=== PATIENT | female | born 1990 | race Caucasian/White ===

== ENCOUNTER 2018-08-09 02:15 | Inpatient (IN) | payer OTHER ==
[~2018-08-09] VITALS: Ht 162.6 cm; Wt 68.0 kg
[2018-08-09] MEDS ORDERED: LR 1,000 ML IV SCH (03:25)
[2018-08-09] MEDS ORDERED: NALBUPHINE HCL 10 MG/ML AMP IVP PRN (03:30)
[2018-08-09] MEDS ORDERED: NALBUPHINE HCL 10 MG/ML AMP IM PRN (03:30)
[2018-08-09 04:24] LABS: BASOPHILS % (AUTO) 0.4 % (0.0-2.0); EOSINOPHILS % (AUTO) 0.5 % (0.0-4.0); HEMATOCRIT 31.4 % (36-48); HEMOGLOBIN 9.6 g/dL (12.0-16.0); LYMPHOCYTES # (AUTO) 2.1 K/uL (1.0-5.5); LYMPHOCYTES % (AUTO) 23.8 % (20.5-51.5); MEAN CORPUSCULAR HEMOGLOBIN 23 pg (27-31); MEAN CORPUSCULAR HGB CONC 31 % (32-36); MEAN CORPUSCULAR VOLUME 76 fL (79.0-98.0); MONOCYTES # (AUTO) 0.6 K/uL (0.0-1.0); MONOCYTES % (AUTO) 6.4 % (1.7-9.3); NEUTROPHILS # (AUTO) 6.2 K/uL (1.8-7.7); NEUTROPHILS % (AUTO) 68.9 % (40.0-70.0); PLATELET COUNT (AUTO) 157 K/uL (130-430); RED BLOOD CELL COUNT(AUTO) 4.11 MIL/uL (4.2-6.2); RED CELL DISTRIBUTION WIDTH 12.8 % (9.0-15.0); WHITE BLOOD COUNT (AUTO) 8.9 K/uL (4.8-10.8)
[2018-08-09 04:46] VITALS: BP_SYST 97
[2018-08-09] MEDS ORDERED: OXYTOCIN/0.9 % SODIUM CHLORIDE 1,000 ML IV SCH ×2 (12:15→13:07)
[2018-08-09] MEDS ORDERED: OXYTOCIN/0.9 % SODIUM CHLORIDE 1,000 ML IV ONE (13:07)
[2018-08-09] MEDS ORDERED: WITCH HAZEL LEAF 1 MED.PAD MED.PAD TP PRN (13:15)
[2018-08-09] MEDS ORDERED: DOCUSATE SODIUM 100 MG CAPSULE PO PRN (13:15)
[2018-08-09] MEDS ORDERED: HYDROcodone/ACETAMIN 5-325 MG TAB (NORCO/ VICODIN) PO PRN ×2 (13:15)
[2018-08-09] MEDS ORDERED: TEMAZEPAM 15 MG CAPSULE PO PRN (13:15)
[2018-08-09] MEDS ORDERED: METHYLERGONOVINE MALEATE 0.2 MG TABLET PO PRN (13:15)
[2018-08-09] MEDS ORDERED: DERMOPLAST SPRAY TP PRN (13:15)
[2018-08-09] MEDS ORDERED: SENNOSIDES/DOCUSATE SODIUM 1 TAB TABLET(SENOKOT-S) PO PRN (13:15)
[2018-08-09] MEDS ORDERED: HYDROCORTISONE 0.5%, 28.35 GM TOPICAL CREAM TP PRN (13:15)
[2018-08-09] MEDS ORDERED: RHO(D) IMMUNE GLOBULIN/MALTOSE 1500 UNITS/1.3 ML (WINHRO) IM PRN (13:15)
[2018-08-09] MEDS ORDERED: ANUSOL 1 EA SUPP.RECT (PREPARATION H) RC PRN (13:15)
[2018-08-09] MEDS ORDERED: MEASLES,MUMPS&RUBELLA VACC/PF 12500 UNIT/0.5 ML VIAL SUBQ PRN (13:15)
[2018-08-09] MEDS ORDERED: LANOLIN 7 GM OINT. TP PRN (13:15)
[2018-08-09] MEDS ORDERED: ACETAMINOPHEN 325 MG TABLET PO PRN (13:15)
[2018-08-09] MEDS: IBUPROFEN 600 MG TABLET PO SCH ×2 (17:48→23:59)
[2018-08-10] MEDS: IBUPROFEN 600 MG TABLET PO SCH (06:00)
[2018-08-10 07:21] LABS: HEMATOCRIT 27.6 % (36-48)
[2018-08-10] MEDS ORDERED: DIPH-TET-PERTUS Vaccine 0.5 ML VIAL (ADACEL) I.M. ONE (12:45)
[2018-08-10] MEDS ORDERED: MINERAL OIL 30 ML UDC PO ONE (13:44)
== END 2018-08-10 13:45 | disposition home or self-care (01) | DRG 807 ==
LOC: SPU 02:15 → OBSVTOIN 02:35
PROVIDERS: ADMIT Obstetrics & Gynecology; ATTEND Obstetrics & Gynecology
PROC: 10E0XZZ Delivery of Products of Conception, External Approach (ICD-10-PCS; principal; 2018-08-09)
PROC: 0HQ9XZZ Repair Perineum Skin, External Approach (ICD-10-PCS; 2018-08-09)
PROC: 3E0234Z Introduction of Serum, Toxoid and Vaccine into Muscle, Percutaneous Approach (ICD-10-PCS; 2018-08-10)
DX: O69.81X0 Labor and delivery complicated by cord around neck, without compression, not applicable or unspecified (principal); Z37.0 Single live birth; Z23 Encounter for immunization; Z3A.40 40 weeks gestation of pregnancy; O70.0 First degree perineal laceration during delivery
CPT/HCPCS: 36415; 81002-TC; 85018-TC; 85025; 86592; 86870; 86886; 86900; 86901; 90715; G0378; J2590

== ENCOUNTER 2018-08-29 10:34 | Emergency (ER) | payer OTHER ==
[~2018-08-29] VITALS: Ht 162.6 cm; Wt 56.7 kg
[2018-08-29 10:41] VITALS: BP_SYST 115
[2018-08-29] MEDS ORDERED: NACL 0.9% 1,000 ML IV ONE (10:53)
[2018-08-29] MEDS ORDERED: KETOROLAC TROMETHAMINE 30 MG VIAL IVP ONE (11:00)
[2018-08-29] MEDS ORDERED: ONDANSETRON HCL 4 MG/2 ML VIAL IVP ONE (11:00)
[2018-08-29] MEDS ORDERED: cefTRIAXone 1 GM IVPB PREMIX 50 ML IV ONE (11:00)
[2018-08-29 11:23] LABS: BASOPHILS # (AUTO) 0.1 K/uL (0.0-0.2); BASOPHILS % (AUTO) 0.8 % (0.0-2.0); EOSINOPHILS % (AUTO) 0.1 % (0.0-4.0); HEMOGLOBIN 12.2 g/dL (12.0-16.0); LYMPHOCYTES # (AUTO) 0.6 K/uL (1.0-5.5); LYMPHOCYTES % (AUTO) 4.7 % (20.5-51.5); MEAN CORPUSCULAR HEMOGLOBIN 23 pg (27-31); MEAN CORPUSCULAR HGB CONC 30 % (32-36); MEAN CORPUSCULAR VOLUME 77 fL (79.0-98.0); MONOCYTES # (AUTO) 0.6 K/uL (0.0-1.0); NEUTROPHILS % (AUTO) 89.4 % (40.0-70.0); PLATELET COUNT (AUTO) 228 K/uL (130-430); RED BLOOD CELL COUNT(AUTO) 5.19 MIL/uL (4.2-6.2); RED CELL DISTRIBUTION WIDTH 14.3 % (9.0-15.0); WHITE BLOOD COUNT (AUTO) 12.3 K/uL (4.8-10.8)
[2018-08-29 11:42] LABS: PROTHROMBIN TIME 9.6 SECS (9.5-12.5)
[2018-08-29 11:45] LABS: CALCIUM 9.4 mg/dL (8.4-11.0); CREATININE 0.83 mg/dL (0.55-1.30); POTASSIUM 3.9 mmol/L (3.5-5.1)
[2018-08-29 11:50] LABS: ALBUMIN 3.8 g/dL (3.4-4.8); TOTAL BILIRUBIN 0.5 mg/dL (0.0-1.0)
[2018-08-29 12:11] LABS: BILIRUBIN,URINE NEGATIVE (NEGATIVE); BLOOD, URINE NEGATIVE (NEGATIVE); CLARITY/URINE SL CLOUDY (CLEAR); COLOR,URINE YELLOW (YELLOW); GLUCOSE,URINE NEGATIVE (NEGATIVE); KETONES,URINE TRACE (NEGATIVE); LEUKOCYTE ESTERASE ,URINE NEGATIVE (NEGATIVE); NITRITE, URINE POSITIVE (NEGATIVE); PH,URINE 6.5 (5.0-8.0); PROTEIN URINE 2+ (NEGATIVE)
[2018-08-29] MEDS ORDERED: ACETAMINOPHEN 500 MG TABLET PO ONE (12:15)
[2018-08-29 12:18] LABS: BACTERIA,URINE MODERATE /HPF (None Seen); MUCUS,URINE 1+ /LPF (None Seen); RBC,URINE 0-3 /HPF (0-3); URINE AMORPHOUS URATE 2+ /HPF (None Seen)
[2018-08-29 12:47] VITALS: BP_SYST 120
== END 2018-08-29 12:45 | disposition home or self-care (01) ==
LOC: SED 10:34
DX: N61.0 Mastitis without abscess (principal); N39.0 Urinary tract infection, site not specified
CPT/HCPCS: 36415; 80053; 81000; 81025; 82150; 83605; 83690; 85025; 85610; 85730; 87040; 96365; 96375; 99284; J0696; J1885; J2405; J7030

== ENCOUNTER 2020-04-06 09:19 | Inpatient (IN) | payer OTHER, SELFPAY ==
[~2020-04-06] VITALS: Ht 0.1 cm; Wt 0.0 kg
[2020-04-06] MEDS ORDERED: LR 1,000 ML IV SCH (10:18)
[2020-04-06] MEDS ORDERED: OXYTOCIN/0.9 % SODIUM CHLORIDE 1,000 ML IV SCH ×2 (10:18→21:55)
[2020-04-06] MEDS ORDERED: AMPICILLIN SODIUM 1 GM in NS 50 ML IV SCH (10:30)
[2020-04-06] MEDS ORDERED: MISOPROSTOL 100 MCG TABLET (CYTOTEC) PO PRN ×2 (10:30)
[2020-04-06] MEDS ORDERED: AMPICILLIN SODIUM 2 GM in NS 100 ML IV ONE ×2 (10:30→11:00)
[2020-04-06] MEDS ORDERED: DINOPROSTONE 10 MG SUPP VG ONE (10:30)
[2020-04-06] MEDS ORDERED: NALBUPHINE HCL 10 MG/ML AMP IVP PRN (10:30)
[2020-04-06 10:38] LABS: BASOPHILS % (AUTO) 0.4 % (0.0-2.0); EOSINOPHILS % (AUTO) 0.2 % (0.0-4.0); HEMATOCRIT 30.8 % (36-48); HEMOGLOBIN 10.1 g/dL (12.0-16.0); LYMPHOCYTES # (AUTO) 1.6 K/uL (1.0-5.5); MEAN CORPUSCULAR HEMOGLOBIN 25 pg (27-31); MEAN CORPUSCULAR HGB CONC 33 % (32-36); MEAN CORPUSCULAR VOLUME 75 fL (79.0-98.0); MONOCYTES # (AUTO) 0.5 K/uL (0.0-1.0); MONOCYTES % (AUTO) 7.3 % (1.7-9.3); NEUTROPHILS # (AUTO) 4.7 K/uL (1.8-7.7); NEUTROPHILS % (AUTO) 69.1 % (40.0-70.0); RED BLOOD CELL COUNT(AUTO) 4.11 MIL/uL (4.2-6.2); RED CELL DISTRIBUTION WIDTH 24.3 % (9.0-15.0); WHITE BLOOD COUNT (AUTO) 6.8 K/uL (4.8-10.8)
[2020-04-06] MEDS ORDERED: MISOPROSTOL 100 MCG TABLET (CYTOTEC) ONE (10:50)
[2020-04-06 11:15] VITALS: BP_SYST 130
[2020-04-06 11:45] LABS: PLATELET COUNT (AUTO) 111 K/uL (130-430)
[2020-04-06] MEDS: AMPICILLIN SODIUM 1 GM in NS 50 ML IV SCH ×2 (14:57→18:55)
[2020-04-06] MEDS ORDERED: OXYTOCIN/0.9 % SODIUM CHLORIDE 1,000 ML IV ONE (21:55)
[2020-04-06] MEDS ORDERED: ACETAMINOPHEN 325 MG TABLET PO PRN (22:00)
[2020-04-06] MEDS ORDERED: ANUSOL 1 EA SUPP.RECT (PREPARATION H) RC PRN (22:00)
[2020-04-06] MEDS ORDERED: TEMAZEPAM 15 MG CAPSULE PO PRN (22:00)
[2020-04-06] MEDS ORDERED: HYDROCORTISONE 0.5%, 28.35 GM TOPICAL CREAM TP PRN (22:00)
[2020-04-06] MEDS ORDERED: MEASLES,MUMPS&RUBELLA VACC/PF 12500 UNIT/0.5 ML VIAL SUBQ PRN (22:00)
[2020-04-06] MEDS ORDERED: RHO(D) IMMUNE GLOBULIN/MALTOSE 1500 UNITS/1.3 ML (WINHRO) IM PRN (22:00)
[2020-04-06] MEDS ORDERED: METHYLERGONOVINE MALEATE 0.2 MG TABLET PO PRN (22:00)
[2020-04-06] MEDS ORDERED: SENNOSIDES/DOCUSATE SODIUM 1 TAB TABLET(SENOKOT-S) PO PRN (22:00)
[2020-04-06] MEDS ORDERED: DERMOPLAST SPRAY TP PRN (22:00)
[2020-04-06] MEDS ORDERED: HYDROcodone/ACETAMIN 5-325 MG TAB (NORCO/ VICODIN) PO PRN ×2 (22:00)
[2020-04-06] MEDS ORDERED: LANOLIN 7 GM OINT. TP PRN (22:00)
[2020-04-06] MEDS ORDERED: DOCUSATE SODIUM 100 MG CAPSULE PO PRN (22:00)
[2020-04-06] MEDS ORDERED: WITCH HAZEL LEAF 1 MED.PAD MED.PAD TP PRN (22:00)
[2020-04-07] MEDS: IBUPROFEN 600 MG TABLET PO SCH ×4 (00:10→18:19)
[2020-04-07 07:14] LABS: HEMATOCRIT 25.7 % (36-48); HEMOGLOBIN 8.3 g/dL (12.0-16.0)
[2020-04-07] MEDS: FERROUS SULFATE 325 MG TABLET.DR PO SCH ×2 (13:31→20:04)
== END 2020-04-07 21:33 | disposition home or self-care (01) | DRG 807 ==
LOC: EEVIPCON 09:19 → SPU 09:19
PROVIDERS: ADMIT Obstetrics & Gynecology; ATTEND Obstetrics & Gynecology
PROC: 10E0XZZ Delivery of Products of Conception, External Approach (ICD-10-PCS; principal; 2020-04-06)
PROC: 3E033VJ Introduction of Other Hormone into Peripheral Vein, Percutaneous Approach (ICD-10-PCS; 2020-04-06)
PROC: 3E0P7VZ Introduction of Hormone into Female Reproductive, Via Natural or Artificial Opening (ICD-10-PCS; 2020-04-06)
PROC: 3E0234Z Introduction of Serum, Toxoid and Vaccine into Muscle, Percutaneous Approach (ICD-10-PCS; 2020-04-06)
DX: O99.824 Streptococcus B carrier state complicating childbirth (principal); Z37.0 Single live birth; O69.81X0 Labor and delivery complicated by cord around neck, without compression, not applicable or unspecified; O26.893 Other specified pregnancy related conditions, third trimester; Z3A.39 39 weeks gestation of pregnancy; Z67.11 Type A blood, Rh negative
CPT/HCPCS: 36415; 81002-TC; 85018-TC; 85025; 86592; 86870; 86886; 86900; 86901; J0290; J2590; J2790; J7120